=== PATIENT | female | born 1980 | race Caucasian/White ===

== ENCOUNTER 2018-08-10 20:55 | Emergency (ER) | payer OTHER ==
[~2018-08-10] VITALS: Ht 152.4 cm; Wt 63.5 kg
[~2018-08-10 20:55] MED LIST: ALBU90OI INH; AZIT250 PO; Ativan0.5 MG PO; BECL40OI INH; BENZ100A PO; CIPR500 PO; IBUP800 PO; Monodox100 MG PO; Prednisone50 MG PO; RXOXYACE PO; SPACE CHAMBER1 EACH MC; Veetids 500500 MG PO
[2018-08-10] MEDS ORDERED: Zithromax250 MG PO (23:24)
[2018-08-10] MEDS ORDERED: Prednisone20 MG PO (23:24)
== END 2018-08-10 23:32 | disposition home or self-care (01) ==
LOC: ER 20:55
DX: R06.2 Wheezing (principal); R05 Cough; F17.200 Nicotine dependence, unspecified, uncomplicated
CPT/HCPCS: 71046; 94640; 99285-25

== ENCOUNTER 2019-02-04 17:54 | Emergency (ER) | payer OTHER ==
[~2019-02-04] VITALS: Ht 152.4 cm; Wt 63.5 kg
[~2019-02-04 17:54] MED LIST changes: +Prednisone20 MG PO; +Zithromax250 MG PO
[2019-02-04] MEDS ORDERED: Veetids 500500 MG PO (18:23)
== END 2019-02-04 18:29 | disposition home or self-care (01) ==
LOC: ER 17:54
DX: K08.89 Other specified disorders of teeth and supporting structures (principal); K03.7 Posteruptive color changes of dental hard tissues; F17.200 Nicotine dependence, unspecified, uncomplicated; Z88.5 Allergy status to narcotic agent
CPT/HCPCS: 99282

== ENCOUNTER 2020-01-24 22:21 | Emergency (ER) | payer OTHER ==
[~2020-01-24] VITALS: Ht 152.4 cm; Wt 62.6 kg
[2020-01-24 23:47] LABS: Source, Urine Clean Catch
[2020-01-24 23:52] LABS: BASOPHILS ABSOLUTE AUTO 0.12 K/mm3 (0.00-0.23); BASOPHILS PERCENT AUTO 1 % (0-2); EOSINOPHILS PERCENT AUTO 5 % (0-6); Hematocrit 37.6 % (33.0-51.0); IMMATURE GRAN ABSOLUTE AUTO 0.02 K/mm3 (0.00-0.10); IMMATURE GRAN PERCENT AUTO 0 % (0-1); LYMPHOCYTES ABSOLUTE AUTO 2.73 K/mm3 (0.84-5.20); LYMPHOCYTES PERCENT AUTO 33 % (21-46); MONOCYTES ABSOLUTE AUTO 0.76 K/mm3 (0.16-1.47); MONOCYTES PERCENT AUTO 9 % (4-13); Mean Corpuscular HGB 29.9 pg (26.0-34.0); Mean Corpuscular HGB Conc 31.9 g/dL (31.5-36.5); Mean Corpuscular Volume 94 fL (80-100); Mean Platelet Volume 10.8 fL (9.1-12.4); NEUTROPHILS ABSOLUTE AUTO 4.36 K/mm3 (1.96-9.15); NEUTROPHILS PERCENT AUTO 52 % (41-73); Platelet Count 249 K/mm3 (150-400); RDW Coefficient Variation 13.1 % (11.7-14.2); RDW Standard Deviation 45.1 fL (35.1-46.3); Red Blood Cell Count 4.01 M/mm3 (3.80-5.20); White Blood Cell Count 8.39 K/mm3 (4.00-11.30)
[2020-01-24 23:56] LABS: Bilirubin, Urine Neg (Neg); Blood, Urine 3+ (Neg); Glucose Qualitative, Urine Neg (Neg); Ketones, Urine Neg (Neg); Leukocyte Esterase, Urine Neg (Neg); Nitrite, Urine Neg (Neg); Protein, Urine Neg (Neg); Urobilinogen, Urine NORM (Normal)
[2020-01-25 00:02] LABS: Appearance, Urine Clear (Clear); Color, Urine Yellow (P-Yellow)
[2020-01-25 00:04] LABS: Bacteria Rare /hpf; Squamous Epithelial Cells Mod /hpf (Few); White Blood Cells, Urine Not Seen /hpf (0-5)
[2020-01-25 00:11] LABS: Alanine Aminotransfer (ALT/SGP 23 U/L (12-78); Albumin, Blood 3.8 g/dL (3.4-5.0); Albumin/Globulin Ratio 1.3 (0.8-1.8); Alk Phos 47 U/L (50-136); Anion Gap 6 mmol/L (6-16); Aspartate Aminotrans (AST/SGOT 16 U/L (12-37); Bilirubin, Total 0.2 mg/dL (0.1-1.0); Blood Urea Nitrogen 13 mg/dL (8-24); Bun/Creatinine Ratio 21.7 (12.0-20.0); CO2, Blood 27 mmol/L (21-32); Calcium, Blood 8.9 mg/dL (8.5-10.1); Chloride, Blood 108 mmol/L (98-108); Glomerular Filtration Rate >60 (60-); Glucose, Blood 81 mg/dL (70-99); Potassium, Blood 3.8 mmol/L (3.5-5.5); Sodium, Blood 141 mmol/L (136-145); Total Protein, Blood 6.8 g/dL (6.4-8.2)
== END 2020-01-25 02:16 | disposition home or self-care (01) ==
LOC: ER 22:21
PROVIDERS: Emergency Medicine
DX: R10.33 Periumbilical pain (principal); R93.5 Abnormal findings on diagnostic imaging of other abdominal regions, including retroperitoneum; R42 Dizziness and giddiness; F17.200 Nicotine dependence, unspecified, uncomplicated; Z88.5 Allergy status to narcotic agent; Z87.19 Personal history of other diseases of the digestive system
CPT/HCPCS: 36415; 74176; 76705; 80053; 81001; 83690; 85025; 99284-25

== ENCOUNTER → 2020-05-16 | Outpatient (CLI) | payer OTHER ==
[2020-05-16 14:34] LABS: BASOPHILS ABSOLUTE AUTO 0.14 K/mm3 (0.00-0.23); BASOPHILS PERCENT AUTO 2 % (0-2); EOSINOPHILS ABSOLUTE AUTO 0.32 K/mm3 (0.00-0.68); EOSINOPHILS PERCENT AUTO 4 % (0-6); Hematocrit 39.6 % (33.0-51.0); IMMATURE GRAN ABSOLUTE AUTO 0.01 K/mm3 (0.00-0.10); IMMATURE GRAN PERCENT AUTO 0 % (0-1); LYMPHOCYTES ABSOLUTE AUTO 1.96 K/mm3 (0.84-5.20); LYMPHOCYTES PERCENT AUTO 26 % (21-46); MONOCYTES ABSOLUTE AUTO 0.59 K/mm3 (0.16-1.47); MONOCYTES PERCENT AUTO 8 % (4-13); Mean Corpuscular HGB 29.8 pg (26.0-34.0); Mean Corpuscular HGB Conc 32.8 g/dL (31.5-36.5); Mean Corpuscular Volume 91 fL (80-100); Mean Platelet Volume 11.1 fL (9.1-12.4); NEUTROPHILS ABSOLUTE AUTO 4.41 K/mm3 (1.96-9.15); NEUTROPHILS PERCENT AUTO 59 % (41-73); Platelet Count 254 K/mm3 (150-400); RDW Coefficient Variation 13.5 % (11.7-14.2); Red Blood Cell Count 4.36 M/mm3 (3.80-5.20); White Blood Cell Count 7.43 K/mm3 (4.00-11.30)
[2020-05-16 14:45] LABS: Alanine Aminotransfer (ALT/SGP 33 U/L (12-78); Albumin, Blood 4.1 g/dL (3.4-5.0); Albumin/Globulin Ratio 1.2 (0.8-1.8); Alk Phos 46 U/L (40-126); Anion Gap 9 mmol/L (6-16); Aspartate Aminotrans (AST/SGOT 20 U/L (12-37); Bilirubin, Total 0.4 mg/dL (0.1-1.0); Blood Urea Nitrogen 11 mg/dL (8-24); Bun/Creatinine Ratio 15.9 (12.0-20.0); CO2, Blood 24 mmol/L (21-32); Calcium, Blood 8.8 mg/dL (8.5-10.1); Chloride, Blood 102 mmol/L (98-108); Creatinine, Blood 0.69 mg/dL (0.40-1.00); Globulin, Blood 3.3 g/dL (2.2-4.0); Glomerular Filtration Rate >60 (60-); Glucose, Blood 92 mg/dL (70-99); Sodium, Blood 135 mmol/L (136-145); Total Protein, Blood 7.4 g/dL (6.4-8.2)
== END | disposition home or self-care (01) ==
LOC: PLD 14:30 → LAB SHORT 14:30 → LAB 14:30
PROVIDERS: Physician Assistant
DX: R10.13 Epigastric pain (principal)
CPT/HCPCS: 80053; 83690; 85025

== ENCOUNTER → 2021-05-29 | Outpatient (CLI) | payer OTHER | END | disposition home or self-care (01) | LOC: LAB SHORT 15:54 → LAB 15:54 | DX: J02.9 Acute pharyngitis, unspecified (principal) | CPT/HCPCS: 87081 ==

== ENCOUNTER 2021-11-23 01:25 | Emergency (ER) | payer OTHER ==
[~2021-11-23] VITALS: Ht 152.4 cm; Wt 63.5 kg
[2021-11-23 02:35] LABS: BASOPHILS ABSOLUTE AUTO 0.13 K/mm3 (0.00-0.23); BASOPHILS PERCENT AUTO 1 % (0-2); EOSINOPHILS ABSOLUTE AUTO 0.44 K/mm3 (0.00-0.68); EOSINOPHILS PERCENT AUTO 5 % (0-6); Hematocrit 38.9 % (33.0-51.0); Hemoglobin 12.9 g/dL (11.5-16.0); IMMATURE GRAN ABSOLUTE AUTO 0.09 K/mm3 (0.00-0.10); IMMATURE GRAN PERCENT AUTO 1 % (0-1); LYMPHOCYTES ABSOLUTE AUTO 2.62 K/mm3 (0.84-5.20); LYMPHOCYTES PERCENT AUTO 28 % (21-46); MONOCYTES ABSOLUTE AUTO 0.94 K/mm3 (0.16-1.47); MONOCYTES PERCENT AUTO 10 % (4-13); Mean Corpuscular HGB 30.2 pg (26.0-34.0); Mean Corpuscular HGB Conc 33.2 g/dL (31.5-36.5); Mean Corpuscular Volume 91 fL (80-100); Mean Platelet Volume 10.1 fL (9.1-12.4); NEUTROPHILS ABSOLUTE AUTO 5.17 K/mm3 (1.96-9.15); NEUTROPHILS PERCENT AUTO 55 % (41-73); Platelet Count 358 K/mm3 (150-400); RDW Coefficient Variation 13.4 % (11.7-14.2); RDW Standard Deviation 44.9 fL (35.1-46.3); Red Blood Cell Count 4.27 M/mm3 (3.80-5.20); White Blood Cell Count 9.39 K/mm3 (4.00-11.30)
[2021-11-23 02:49] LABS: Albumin, Blood 3.5 g/dL (3.4-5.0); Albumin/Globulin Ratio 1.2 (0.8-1.8); Bilirubin, Total 0.4 mg/dL (0.1-1.0); Bun/Creatinine Ratio 17.4 (12.0-20.0); Calcium, Blood 8.7 mg/dL (8.5-10.1); Creatinine, Blood 0.63 mg/dL (0.40-1.00); Potassium, Blood 3.9 mmol/L (3.5-5.5); Total Protein, Blood 6.5 g/dL (6.4-8.2)
[2021-11-23] MEDS ORDERED: PROMETHAZINE12.5 M1 PO (05:12)
[2021-11-23] MEDS ORDERED: PROM12.5S PR (05:12)
[2021-11-23] MEDS ORDERED: ONDA4ODT MM (05:12)
== END 2021-11-23 05:37 | disposition home or self-care (01) ==
LOC: ER 01:25
PROVIDERS: Student in an Organized Health Care Education/Training Program
DX: K80.20 Calculus of gallbladder without cholecystitis without obstruction (principal); N83.202 Unspecified ovarian cyst, left side; F41.0 Panic disorder [episodic paroxysmal anxiety]; F17.210 Nicotine dependence, cigarettes, uncomplicated; Z88.5 Allergy status to narcotic agent; Z79.899 Other long term (current) drug therapy
CPT/HCPCS: 36415; 74177; 80053; 83690; 84703; 85025; A9270; C9113; J1200; J2270; J2405; Q9967